=== PATIENT | female | born 1970 | race Caucasian/White ===

== ENCOUNTER 2017-02-08 07:38 | Emergency (ER) | payer OTHER ==
[2017-02-08 07:53] VITALS: BP 130/89; PULSE 67; RESP 16; TEMP 97.8; O2SAT 99
--- NOTE | 2017-02-08 08:15 | C.PDOC ---
History Of Present Illness 46 y/o F c PMHx nephrolithiasis p/w back pain x 2 days. Pain is lower back, midline, in a small focal area, sharp, constant, worse with movement. She denies trauma or injury. Denies numbness, weakness, dysuria, hematuria, vomiting , diarrhea, constipation, vaginal bleeding, incontinence or retention. She states this does not feel like a kidney stone. Time Seen by Provider: 02/08/17 07:54 Chief Complaint (Nursing): Back Pain Past Medical History Vital Signs: Last Vital Signs Temp 97.8 F 02/08/17 07:41 Pulse 67 02/08/17 07:41 Resp 16 02/08/17 07:41 BP 130/89 02/08/17 07:41 Pulse Ox 99 02/08/17 09:21 Family History: States: No Known Family Hx - Social History Hx Alcohol Use: Yes Hx Substance Use: No - Immunization History Hx Tetanus Toxoid Vaccination: No Hx Influenza Vaccination: No Hx Pneumococcal Vaccination: No Review Of Systems Except As Marked, All Systems Reviewed And Found Negative. Constitutional: Negative for: Fever Respiratory: Negative for: Shortness of Breath Physical Exam - Physical Exam Additional Physical Exam Comments: Constitutional: No acute distress. Head: Normocephalic. Atraumatic. Eyes: PERRL. ENT: Moist mucous membranes. Neck: Supple. Cardiovascular: Regular rate. Radial pulses 2+ bilaterally. Chest: No tenderness. Respiratory: Clear to auscultation bilaterally. GI: Soft. Nontender. Nondistended. Back: Lumbar midline tenderness. Musculoskeletal: No tenderness or swelling of extremities. Skin: No rash. Neurologic: Alert, no focal deficit ED Course And Treatment O2 Sat by Pulse Oximetry: 99 Medical Decision Making Medical Decision Making: Toradol IM and flexeril for pain. Check LS spine film and UA. PROCEDURE: Radiographs of the Lumbar Spine. HISTORY: lower back pain COMPARISON: None available. FINDINGS: BONES: Alignment appears satisfactory. No listhesis. No acute displaced fracture identified. Degenerative changes including tiny anterior osteophyte formation. DISC SPACES: Unremarkable. OTHER FINDINGS: None. IMPRESSION: No acute displaced fracture or subluxation identified. Patient feels better, will discharge on ibuprofen and flexeril, f/u PMD, work note, return to ER for worsening pain, numbness, weakness, urinary/bowel changes , vomiting, dyspnea, or any other problem. Disposition - Disposition Disposition: HOME/ ROUTINE Disposition Time: 09:15 Condition: STABLE Additional Instructions: PROCEDURE: Radiographs of the Lumbar Spine. HISTORY: lower back pain COMPARISON: None available. FINDINGS: BONES: Alignment appears satisfactory. No listhesis. No acute displaced fracture identified. Degenerative changes including tiny anterior osteophyte formation. DISC SPACES: Unremarkable. OTHER FINDINGS: None. IMPRESSION: No acute displaced fracture or subluxation identified. Prescriptions: Cyclobenzaprine [Cyclobenzaprine HCl] 10 mg PO TID #15 tab Famotidine [Pepcid] 1 tab PO BID #14 tab Ibuprofen [Motrin] 600 mg PO Q6 #25 tab Instructions: Back Pain (ED) Forms: [facility] (Lux[place]ish), Work Excuse - Clinical Impression Clinical Impression: Low back pain
[2017-02-08 08:48] LABS: RBC URINE < 1 /hpf (0-3); URINE BILIRUBIN NEGATIVE (NEGATIVE); URINE BLOOD NEGATIVE (NEGATIVE); URINE COLOR Straw (YELLOW); URINE GLUCOSE (UA) NORMAL (Normal); URINE KETONE NEGATIVE (NEGATIVE); URINE LEUKOCYTE ESTERASE NEG Leu/uL (Negative); URINE PROTEIN NEGATIVE (NEGATIVE); URINE UROBILINOGEN NORMAL mg/dL (0.2-1.0); WBC URINE < 1 /hpf (0-5)
--- NOTE | 2017-02-08 09:13 | RAD ---
PROCEDURE: Radiographs of the Lumbar Spine. HISTORY: lower back pain COMPARISON: None available. FINDINGS: BONES: Alignment appears satisfactory. No listhesis. No acute displaced fracture identified. Degenerative changes including tiny anterior osteophyte formation. DISC SPACES: Unremarkable. OTHER FINDINGS: None. IMPRESSION: No acute displaced fracture or subluxation identified.
== END 2017-02-08 09:27 | disposition home or self-care (01) ==
LOC: C.ER 07:38
DX: M54.5 Low back pain (principal)
CPT/HCPCS: 72100; 81001; 84703; 87086; 96372; 99284; J1885

== ENCOUNTER 2018-06-28 09:34 | Outpatient (CLI) | payer OTHER | END 2018-06-28 09:35 | disposition home or self-care (01) | LOC: C.LAB 09:34 | DX: E06.3 Autoimmune thyroiditis (principal) ==

== ENCOUNTER 2018-07-17 09:56 | Outpatient (CLI) | payer OTHER | END 2018-07-17 09:57 | disposition home or self-care (01) | LOC: C.LAB 09:56 | DX: D49.2 Neoplasm of unspecified behavior of bone, soft tissue, and skin (principal) ==

== ENCOUNTER 2018-09-11 10:10 | Emergency (ER) | payer OTHER ==
[2018-09-11 10:10] VITALS: BMI 36.6
[2018-09-11 10:30] VITALS: PULSE 63; RESP 20; TEMP 97.4; O2SAT 100
--- NOTE | 2018-09-11 11:13 | C.PDOC ---
History Of Present Illness 48 year old female presents to the ED for evaluation of right wrist pain and swelling noted upon waking up this morning. Patient states she did not notice any symptoms before going to bed last night. 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 She went to work today and found that she could not perform her tasks, and was sent to the ED for further evaluation. Patient has not taken anything for pain and denies known trauma/injuries to the site or extremity numbness/weakness. Time Seen by Provider: 09/11/18 10:31 Chief Complaint (Nursing): Upper Extremity Problem/Injury History Per: Patient History/Exam Limitations: no limitations Onset/Duration Of Symptoms: Hrs Current Symptoms Are (Timing): Still Present Quality: "Pain" Additional History Per: Patient Past Medical History Reviewed: Historical Data, Nursing Documentation, Vital Signs Vital Signs: Last Vital Signs Temp 97.4 F L 09/11/18 10:20 Pulse 63 09/11/18 10:20 Resp 20 09/11/18 10:20 BP Pulse Ox 100 09/11/18 10:20 - Medical History PMH: Arthritis Denies: Chronic Kidney Disease Surgical History: No Surg Hx Family History: States: Unknown Family Hx - Social History Hx Alcohol Use: Yes Hx Substance Use: No - Immunization History Hx Tetanus Toxoid Vaccination: No Hx Influenza Vaccination: No Hx Pneumococcal Vaccination: No Review Of Systems Musculoskeletal: Positive for: Other (right wrist pain and swelling, atraumatic ) Neurological: Negative for: Weakness, Numbness Physical Exam - Physical Exam Appears: Non-toxic, No Acute Distress Skin: Normal Color, Warm, Dry, No Ecchymosis Extremity: No Normal ROM (intact, but limited secondary to pain ), Tenderness (to the medial aspect of right volar wrist ), Capillary Refill (less than 2 seconds ), No Swelling, No Other (erythema or warmth to right wrist ) Pulses: Left Radial: Normal, Right Radial: Normal Neurological/Psych: Normal Speech, Normal Cognition, Normal Sensation ED Course And Treatment O2 Sat by Pulse Oximetry: 100 Medical Decision Making Medical Decision Making: Progress: Motrin PO and Tylenol PO given. No XR is needed at this time, since patient denies known trauma/injury to the wrist. Area was wrapped by nurse. On reassessment, patient is resting comfortably, showing no signs of distress and reports an improvement in her pain. Patient is stable for discharge and advised to follow up with her PMD within 1-2 days for further evaluation. Disposition Counseled Patient/Family Regarding: Diagnosis, Need For Followup, Rx Given - Disposition Referrals: Princess William MD [Staff Provider] - Disposition: HOME/ ROUTINE Disposition Time: 11:30 Condition: STABLE Prescriptions: Ibuprofen [Motrin] 600 mg PO TID #15 tab Instructions: Carpal Tunnel Exercises Forms: General Discharge Instructions, [facility] (Danish), Work Excuse - POA Present On Arrival: None - Clinical Impression Clinical Impression: Wrist pain, right - Scribe Statement The provider has reviewed the documentation as recorded by the Scribe (Apryl Sams) Provider Attestation: All medical record entries made by the Scribe were at my direction and personally dictated by me. I have reviewed the chart and agree that the record accurately reflects my personal performance of the history, physical exam, medical decision making, and the department course for this patient. I have also personally directed, reviewed, and agree with the discharge instructions and disposition.
== END 2018-09-11 11:41 | disposition home or self-care (01) ==
LOC: C.ER 10:10
DX: M25.531 Pain in right wrist (principal)